=== PATIENT | female | born 1995 | race African-American/Black ===

== ENCOUNTER 2019-07-07 14:14 | Emergency (ER) | payer OTHER ==
[~2019-07-07] VITALS: Ht 167.6 cm; Wt 62.1 kg
--- NOTE | 2019-07-07 14:24 | NUR ---
BIB SELF, CAME FROM CLINIC, WAS DIAGNOSED W GONORRHEA, NO MEDICATIONS WERE GIVEN FROM CLINIC. TO ER BED 16, HOOKED TO MONITOR, AWAITING MD FARFAN
--- NOTE | 2019-07-07 14:36 | NUR ---
URINE SPECIMEN COLLECTED AND SENT TO LAB.
--- NOTE | 2019-07-07 14:37 | NUR ---
GONZALO ADAMS AT BEDSIDE
[2019-07-07] MEDS ORDERED: AZITHROMYCIN 250 MG TABLET ONE (14:54)
[2019-07-07] MEDS ORDERED: CEFTRIAXONE 500 MG VIAL ONE (14:54)
[2019-07-07] MEDS ORDERED: LIDOCAINE /MPF 1% VIAL 5 ML VIAL ONE (14:55)
[2019-07-07] MEDS ORDERED: CEFTRIAXONE 1 G VIAL IM ONE (15:00)
[2019-07-07] MEDS ORDERED: AZITHROMYCIN 250 MG TABLET PO ONE (15:00)
--- NOTE | 2019-07-07 15:04 | NUR ---
Patient discharged to home in stable condition. Written and verbal after care instructions given. Patient verbalizes understanding of instruction.
[2019-07-07 15:07] VITALS: BP 134/70
== END 2019-07-07 15:07 | disposition home or self-care (01) ==
LOC: ER 14:18
DX: A54.09 Other gonococcal infection of lower genitourinary tract (principal); E11.9 Type 2 diabetes mellitus without complications; F41.9 Anxiety disorder, unspecified; Z88.0 Allergy status to penicillin
CPT/HCPCS: 96372; 99283; J0696; J3490

== ENCOUNTER 2019-07-07 16:23 | Emergency (ER) | payer OTHER, MEDICAID ==
[~2019-07-07] VITALS: Ht 167.6 cm; Wt 62.1 kg
[2019-07-07 16:25] VITALS: BP 131/76
[2019-07-07] MEDS ORDERED: LORAZEPAM 1 MG TABLET ONE (16:55)
[2019-07-07] MEDS ORDERED: LORAZEPAM 1 MG TABLET PO ONE (17:00)
== END 2019-07-07 17:18 | disposition home or self-care (01) ==
LOC: ER 16:24
DX: F41.9 Anxiety disorder, unspecified (principal); R00.0 Tachycardia, unspecified; E11.9 Type 2 diabetes mellitus without complications; Z88.0 Allergy status to penicillin